=== PATIENT | female | born 2000 ===

== ENCOUNTER 2021-11-17 16:19 | Inpatient (IN) | payer OTHER ==
[~2021-11-17] VITALS: Ht 167.6 cm; Wt 59.1 kg
[2021-11-17 16:48] LABS: COVID AG,FIA SOURCE NASOPHARYNGEAL
[2021-11-17 17:06] LABS: BASOPHILS % (AUTO) 0.6 % (0.0-2.0); EOSINOPHILS % (AUTO) 0.7 % (1.0-6.0); HEMATOCRIT 41.7 % (36-46); HEMOGLOBIN 13.9 g/dL (12.0-16.0); LYMPHOCYTES # (AUTO) 2.5 K/uL (1.0-4.8); LYMPHOCYTES % (AUTO) 25.1 % (22.0-44.0); MEAN CORPUSCULAR HEMOGLOBIN 27.1 pg (26.0-34.0); MEAN CORPUSCULAR HGB CONC 33.3 G/dL (31.0-37.0); MEAN CORPUSCULAR VOLUME 81 fL (80-100); MONOCYTES # (AUTO) 0.7 K/uL (0.1-1.0); MONOCYTES % (AUTO) 7.2 % (2.0-9.0); NEUTROPHILS # (AUTO) 6.6 K/uL (1.8-7.7); NEUTROPHILS % (AUTO) 66.4 % (40.0-70.0); PLATELET COUNT (AUTO) 297 K/uL (150-450); RED BLOOD CELL COUNT(AUTO) 5.14 MIL/uL (4.00-5.20); RED CELL DISTRIBUTION WIDTH 15.1 % (11.5-14.5)
[2021-11-17 17:18] LABS: ANION GAP 15 mmol/L (8-16); CALCIUM, TOTAL 9.4 mg/dL (8.8-10.5); CARBON DIOXIDE 24 mmol/L (22-29); CHLORIDE 107 mmol/L (98-107); CREATININE 0.75 mg/dL (0.60-1.30); GLOMERULAR FILTR. RATE CALC > 60 mL/min (>60); GLUCOSE,RANDOM 83 mg/dL (70-110); POTASSIUM 4.3 mmol/L (3.5-5.1); SODIUM SERUM 146 mmol/L (136-145); UREA NITROGEN, BLOOD 15 mg/dL (7-18)
[2021-11-17 17:24] LABS: ALANINE AMINOTRANSFERASE 79 U/L (12-78); ALKALINE PHOSPHATASE 114 U/L (46-116); ASPARTATE AMINOTRANSFERASE 30 U/L (15-37); BILIRUBIN,TOTAL 0.6 mg/dL (0.1-1.0); TOTAL PROTEIN, SERUM 8.1 g/dL (6.4-8.2)
[2021-11-17] MEDS ORDERED: LORazepam 2 MG/ML VIAL IVP PRN (17:30)
[2021-11-17] MEDS ORDERED: SODIUM CHLORIDE 0.45% 1,000 ML IV ONE (17:30)
[2021-11-17] MEDS ORDERED: DICYCLOMINE HCL 10 MG CAPSULE PO PRN (17:30)
[2021-11-17] MEDS ORDERED: METOCLOPRAMIDE HCL 5 MG/ML 2 ML VIAL IVP PRN (17:30)
[2021-11-17 18:47] VITALS: BP 110/57
[2021-11-17 19:30] VITALS: BP 89/54
[2021-11-17] MEDS: TEMAZEPAM 15 MG CAPSULE PO SCH (20:06)
[2021-11-17 23:44] VITALS: BP 115/63
[2021-11-18 04:23] VITALS: BP 114/73
[2021-11-18 08:42] VITALS: BP 104/58
[2021-11-18] MEDS: LORazepam 2 MG/ML VIAL IM PRN ×2 (09:15→17:18)
[2021-11-18] MEDS: ACETAMINOPHEN/CODEINE 300-15 MG TABLET PO PRN (17:18)
[2021-11-18] MEDS: TEMAZEPAM 15 MG CAPSULE PO SCH (22:23)
[2021-11-18] MEDS: OLANZapine 5 MG RAPDIS TABLET PO SCH (22:23)
[2021-11-18 22:47] VITALS: BP 100/52
[2021-11-18 23:05] LABS: AMPHET/METH SCREEN,URINE NEGATIVE (NEGATIVE); BARBITURATE SCREEN, URINE NEGATIVE (NEGATIVE); BENZODIAZEPINES SCREEN,URINE NEGATIVE (NEGATIVE); CANNABINOID SCREEN,URINE NEGATIVE (NEGATIVE); COCAINE SCREEN,URINE NEGATIVE (NEGATIVE); METHADONE SCREEN, URINE NEGATIVE (NEGATIVE); OPIATE SCREEN,URINE NEGATIVE (NEGATIVE); PHENCYCLIDINE SCREEN,URINE NEGATIVE (NEGATIVE)
[2021-11-19] MEDS: LORazepam 2 MG/ML VIAL IM PRN ×2 (06:27→13:40)
[2021-11-19] MEDS: OLANZapine 5 MG RAPDIS TABLET PO SCH ×2 (10:23→20:36)
[2021-11-19 10:53] VITALS: BP 122/60
[2021-11-19 16:44] VITALS: BP 111/70
[2021-11-19] MEDS: ACETAMINOPHEN/CODEINE 300-15 MG TABLET PO PRN (18:19)
[2021-11-19] MEDS ORDERED: DiphenhydrAMINE HCL 50 MG/ML VIAL ONE (18:23)
[2021-11-19] MEDS ORDERED: HALOPERIDOL LACTATE 5 MG/ML VIAL ONE (18:23)
[2021-11-19] MEDS ORDERED: LORazepam 2 MG/ML VIAL IM ONE (18:30)
[2021-11-19] MEDS ORDERED: HALOPERIDOL DECANOATE 50 MG/ML VIAL IM ONE (18:30)
[2021-11-19] MEDS: DiphenhydrAMINE HCL 50 MG/ML VIAL IM PRN (18:33)
[2021-11-19] MEDS ORDERED: HALOPERIDOL LACTATE 5 MG/ML VIAL IVP ONE (18:45)
[2021-11-19] MEDS ORDERED: HALOPERIDOL LACTATE 5 MG/ML VIAL IM ONE (18:45)
[2021-11-19 19:50] VITALS: BP 110/57
[2021-11-19] MEDS: TEMAZEPAM 15 MG CAPSULE PO SCH (20:36)
[2021-11-20] MEDS: ACETAMINOPHEN/CODEINE 300-15 MG TABLET PO PRN (07:32)
[2021-11-20] MEDS: OLANZapine 5 MG RAPDIS TABLET PO SCH ×2 (07:32→19:46)
[2021-11-20] MEDS: LORazepam 2 MG/ML VIAL IM PRN (09:11)
[2021-11-20] MEDS ORDERED: HALOPERIDOL LACTATE 5 MG/ML VIAL ONE (09:35)
[2021-11-20 09:47] VITALS: BP 151/79
[2021-11-20] MEDS ORDERED: DiphenhydrAMINE HCL 50 MG/ML VIAL IM ONE (10:00)
[2021-11-20] MEDS ORDERED: HALOPERIDOL LACTATE 5 MG/ML VIAL IM ONE (10:00)
[2021-11-20 12:31] VITALS: BP 123/72
[2021-11-20 18:36] VITALS: BP 131/74
[2021-11-20 19:44] VITALS: BP 107/66
[2021-11-20] MEDS: TEMAZEPAM 15 MG CAPSULE PO SCH (19:46)
[2021-11-21 04:51] VITALS: BP 117/64
[2021-11-21] MEDS: LORazepam 2 MG/ML VIAL IM PRN ×2 (06:23→16:46)
[2021-11-21] MEDS: DiphenhydrAMINE HCL 50 MG/ML VIAL IM PRN (06:24)
[2021-11-21] MEDS: OLANZapine 5 MG RAPDIS TABLET PO SCH ×2 (08:15→19:56)
[2021-11-21 15:45] VITALS: BP 120/72
[2021-11-21] MEDS: TEMAZEPAM 15 MG CAPSULE PO SCH (19:56)
[2021-11-21 20:00] VITALS: BP 112/68
[2021-11-22] MEDS: ACETAMINOPHEN/CODEINE 300-15 MG TABLET PO PRN ×2 (02:04→22:15)
[2021-11-22 04:55] VITALS: BP 125/71
[2021-11-22 08:05] VITALS: BP 109/73
[2021-11-22] MEDS: OLANZapine 5 MG RAPDIS TABLET PO SCH ×2 (08:35→21:05)
[2021-11-22] MEDS: DiphenhydrAMINE HCL 50 MG/ML VIAL IM PRN (12:42)
[2021-11-22 15:59] VITALS: BP 102/67
[2021-11-22 19:55] VITALS: BP 118/61
[2021-11-22] MEDS: TEMAZEPAM 15 MG CAPSULE PO SCH (21:04)
[2021-11-22] MEDS: LORazepam 2 MG/ML VIAL IM PRN (21:05)
[2021-11-23 05:25] VITALS: BP 100/66
[2021-11-23 08:00] VITALS: BP 118/63
[2021-11-23] MEDS ORDERED: HALOPERIDOL LACTATE 5 MG/ML VIAL ONE (10:15)
[2021-11-23] MEDS ORDERED: HALOPERIDOL LACTATE 5 MG/ML VIAL IM ONE (11:15)
[2021-11-23] MEDS ORDERED: LORazepam 2 MG/ML VIAL IM ONE (11:15)
[2021-11-23] MEDS: DIVALPROEX SODIUM 500 MG DR TABLET PO SCH ×2 (12:05→21:26)
[2021-11-23] MEDS: OLANZapine 5 MG RAPDIS TABLET PO SCH ×2 (12:05→21:26)
[2021-11-23 19:40] VITALS: BP 105/62
[2021-11-23] MEDS: TEMAZEPAM 15 MG CAPSULE PO SCH (21:26)
[2021-11-24 04:15] VITALS: BP 113/67
[2021-11-24 08:52] VITALS: BP 108/47
[2021-11-24] MEDS: OLANZapine 5 MG RAPDIS TABLET PO SCH ×2 (09:11→20:25)
[2021-11-24] MEDS: DIVALPROEX SODIUM 500 MG DR TABLET PO SCH ×2 (09:13→20:26)
[2021-11-24] MEDS ORDERED: DIVA-112 PO ×2 (15:35→15:41)
[2021-11-24] MEDS ORDERED: OLAN7.5T22 PO ×2 (15:36→15:43)
[2021-11-24 20:10] VITALS: BP 114/63
[2021-11-24] MEDS: TEMAZEPAM 15 MG CAPSULE PO SCH (20:25)
[2021-11-25] MEDS: DIVALPROEX SODIUM 500 MG DR TABLET PO SCH ×2 (08:28→20:44)
[2021-11-25] MEDS: OLANZapine 5 MG RAPDIS TABLET PO SCH ×2 (08:33→20:44)
[2021-11-25 09:00] VITALS: BP 109/72
[2021-11-25 16:15] VITALS: BP 127/75
[2021-11-25 20:25] VITALS: BP 111/54
[2021-11-25] MEDS: TEMAZEPAM 15 MG CAPSULE PO SCH (20:44)
[2021-11-25] MEDS ORDERED: MELATONIN 3 MG TABLET PO PRN (23:45)
[2021-11-26 04:29] VITALS: BP 102/72
[2021-11-26 08:22] VITALS: BP 107/71
[2021-11-26] MEDS: DIVALPROEX SODIUM 500 MG DR TABLET PO SCH (08:51)
[2021-11-26] MEDS: OLANZapine 5 MG RAPDIS TABLET PO SCH (08:52)
== END 2021-11-26 09:00 | DRG 885 ==
LOC: EMS 16:19 → 5S 17:22 → 6S 11-18 06:28
PROVIDERS: ADMIT Internal Medicine; ATTEND Internal Medicine
DX: F31.2 Bipolar disorder, current episode manic severe with psychotic features (principal); F43.10 Post-traumatic stress disorder, unspecified; Z20.822 Contact with and (suspected) exposure to COVID-19; Z91.014 Allergy to mammalian meats
CPT/HCPCS: 80053; 80307; 85025; 99285; G0480; J1200; J1630; J1631; J2060